=== PATIENT | female | born 1970 | race African-American/Black ===

== ENCOUNTER 2016-10-21 09:22 | Emergency (ER) | payer SELFPAY ==
[~2016-10-21] VITALS: Ht 180.3 cm; Wt 104.3 kg
[~2016-10-21 09:22] MED LIST: ACYC400T PO; CITA20TA9 PO; CLIN-44 PO; DOCU-27 PO; FERR-26 PO; HYDR-971 PO; LISI10TA2 PO; LISI1TAB3 PO; PENI500T PO; POLY17PO29 PO; QUET300T5 PO; QUET400T4 PO; UNABLE MC
[2016-10-21 09:45] VITALS: BP 139/93
[2016-10-21] MEDS ORDERED: AMOX1TAB61 PO (10:28)
--- NOTE | 2016-10-21 10:28 | PHYS DOC ---
Past Medical History Past Medical History: Alcoholism, Anxiety, Depression, High Cholesterol, Hypertension, Schizophrenia, Other Additional Past Medical Histor: schizophrenia w/ hallucinations, visual and auditory, PARANOIA Past Surgical History: Tubal ligation, Other Additional Past Surgical Histo: I&D Additional Information: 2-3 cigarettes daily Alcohol Use: Occasionally Drug Use: Cocaine, Marijuana Adult General Chief Complaint Chief Complaint: COUGH HPI HPI Patient is a 46 year old female comes to the emergency department stating that she's had a cough congestion sore throat and chest discomfort when she coughs for the last week. She states she's been taking [id number]-[id number] medications from [facility]. She denies any relief with the medications. She states she' s been having a fever at home although has not taken her temperature. States that she has yellow to greenish nasal discharge with a productive cough. Does state she has history of smoking. She states that she has not spoke to the last 3-4 days. Review of Systems Review of Systems Constitutional: Denies fever or chills [] Eyes: Denies change in visual acuity, redness, or eye pain [] HENT: nasal congestion and sore throat [] Respiratory: cough denies shortness of breath [] Cardiovascular: No additional information not addressed in HPI [] GI: Denies abdominal pain, nausea, vomiting, bloody stools or diarrhea [] : Denies dysuria or hematuria [] Musculoskeletal: Denies back pain or joint pain [] Integument: Denies rash or skin lesions [] Neurologic: Denies headache, focal weakness or sensory changes [] Endocrine: Denies polyuria or polydipsia [] Allergies Allergies Allergies Coded Allergies Type Severity Reaction Last Updated Verified No Known Drug Allergies 05/21/13 No Physical Exam Physical Exam Constitutional: Well developed, well nourished, no acute distress, non-toxic appearance. [] HENT: Normocephalic, atraumatic, bilateral external ears normal, oropharynx moist, no oral exudates, nose normal. Bilateral tympanic membranes appear to be normal. Throat with no erythematous no redness no drainage or discharge noted no exudate noted. Patient with no anterior cervical adenopathy noted. Patient's with frontal and maxillary sinus tenderness. Eyes: PERRLA, EOMI, conjunctiva normal, no discharge. [] Neck: Normal range of motion, no tenderness, supple, no stridor. [] Cardiovascular:Heart rate regular rhythm, no murmur [] Lungs & Thorax: Bilateral breath sounds clear to auscultation [] Skin: Warm, dry, no erythema, no rash. [] Back: No tenderness Extremities: No tenderness, no cyanosis, no clubbing, ROM intact, no edema. [] Neurologic: Alert and oriented X 3, normal motor function, normal sensory function, no focal deficits noted. [] Psychologic: Affect normal, judgement normal, mood normal. [] Current Patient Data Vital Signs Vital Signs Date Time Temp Pulse Resp B/P (MAP) Pulse Ox O2 Delivery O2 Flow Rate FiO2 10/21/16 09:45 97.8 81 18 139/93 (108) 98 Room Air 97.8 EKG EKG [] Radiology/Procedures Radiology/Procedures [] Course & Med Decision Making Course & Med Decision Making Pertinent Labs and Imaging studies reviewed. (See chart for details) Patient will be discharged home with Augmentin. She was instructed to continue to stop smoking. Recommended Tylenol or ibuprofen for fever chills generalized body aches and discomfort. Mucinex wryr-qny-[id number] for nasal congestion and cough. She was recommended take this as directed by logging crew supervisor. Also recommended plenty of fluids. Patient will be discharged home in stable condition signs and symptoms to return back to emergency department been provided. [] Dragon Disclaimer Dragon Disclaimer This electronic medical record was generated, in whole or in part, using a voice recognition dictation system. Departure Departure Impression: Primary Impression: Upper respiratory infection Disposition: HOME, SELF-CARE Condition: STABLE Referrals: NO PCP (PCP) Patient Instructions: Upper Respiratory Infection, Adult, Mrep-[id number] Additional Instructions: Home to rest Medication as prescribed. Mucinex amhq-xhc-ukvudud instructed by logging crew supervisor will help with cough and congestion Drink plenty of fluids. Follow-up to primary care physician next 3-5 days. Return back to emergency prior signs symptoms of become worse. Scripts Amoxicillin/Potassium Clav (AUGMENTIN 875-125 TABLET) 1 Each Tablet 1 TAB PO BID, #20 TAB Prov: MECHE BARRERA APRN 10/21/16 MECHE BARRERA APRN October 21, 2016 10:28
== END 2016-10-21 10:46 | disposition home or self-care (01) ==
LOC: ER 10:09
DX: J06.9 Acute upper respiratory infection, unspecified (principal); E78.00 Pure hypercholesterolemia, unspecified; I10 Essential (primary) hypertension; F20.9 Schizophrenia, unspecified; R44.1 Visual hallucinations; R44.0 Auditory hallucinations; F17.210 Nicotine dependence, cigarettes, uncomplicated; F12.10 Cannabis abuse, uncomplicated; F14.10 Cocaine abuse, uncomplicated; F10.10 Alcohol abuse, uncomplicated
CPT/HCPCS: 99283

== ENCOUNTER 2017-06-07 08:57 | Emergency (ER) | payer SELFPAY ==
[2017-06-07] MEDS ORDERED: IBUPROFEN 800 MG TABLET. PO ×2 (09:35)
[2017-06-07] MEDS: IBUPROFEN 600 MG TABLET. PO (09:37)
[2017-06-07 10:16] LABS: INFLUENZA A PATIENT NEGATIVE (NEGATIVE); INFLUENZA B PATIENT NEGATIVE (NEGATIVE); OBC FLU VALID
== END 2017-06-07 10:50 | disposition home or self-care (01) ==
LOC: ER 08:57
DX: J06.9 Acute upper respiratory infection, unspecified (principal); E78.00 Pure hypercholesterolemia, unspecified; I10 Essential (primary) hypertension; F20.9 Schizophrenia, unspecified; F10.20 Alcohol dependence, uncomplicated; F32.9 Major depressive disorder, single episode, unspecified; F41.9 Anxiety disorder, unspecified
CPT/HCPCS: 87804; 87804-59; 99284

== ENCOUNTER 2018-11-27 04:01 | Emergency (ER) | payer MEDICAID ==
[~2018-11-27] VITALS: Ht 180.3 cm; Wt 86.2 kg
[~2018-11-27 04:01] MED LIST changes: +AMOX1TAB61 PO; -CLIN-44 PO; +CLIN150C14 PO; +DOCU-109 PO; -DOCU-27 PO; -FERR-26 PO; +FERR325T14 PO; +HYDR-3164 PO; -HYDR-971 PO
[2018-11-27 04:04] VITALS: BP 194/99
[2018-11-27] MEDS ORDERED: cefTRIAXone IV Push 1 GM VIAL. IVP ONE (04:45)
[2018-11-27] MEDS ORDERED: fentaNYL PF VIAL 100 MCG/2 ML VIAL IV ONE (04:45)
[2018-11-27] MEDS ORDERED: IV NORMAL SALINE 500ML BAG 500 ML IV ONE (04:45)
[2018-11-27 05:08] LABS: BASO % 1 % (0-3); EOS # 0.1 x10^3/uL (0.0-0.7); EOS % 1 % (0-3); HEMATOCRIT 40.3 % (36.0-47.0); HEMOGLOBIN 13.5 g/dL (12.0-15.5); LYMPH # 2.1 x10^3/uL (1.0-4.8); LYMPH % 30 % (24-48); MEAN CORPUSCULAR HEMOGLOBIN 29 pg (25-35); MEAN CORPUSCULAR HGB CONC 33 g/dL (31-37); MEAN CORPUSCULAR VOLUME 88 fL (79-100); MONO # 0.5 x10^3/uL (0.0-1.1); MONO % 7 % (0-9); NEUT # 4.4 x10^3uL (1.8-7.7); NEUT % 61 % (31-73); PLATELET COUNT 238 x10^3/uL (140-400); RED BLOOD COUNT 4.59 x10^6/uL (3.50-5.40); RED CELL DISTRIBUTION WIDTH 14.5 % (11.5-14.5); WHITE BLOOD COUNT 7.1 x10^3/uL (4.0-11.0)
[2018-11-27 05:19] LABS: CALCIUM 9.1 mg/dL (8.5-10.1); CREATININE 0.7 mg/dL (0.6-1.0); GFR 107.2; POTASSIUM 3.7 mmol/L (3.5-5.1)
[2018-11-27 05:25] LABS: ALBUMIN 3.6 g/dL (3.4-5.0); ALBUMIN/GLOBULIN RATIO 0.9 (1.0-1.7); TOTAL BILIRUBIN 0.1 mg/dL (0.2-1.0); TOTAL PROTEIN 7.4 g/dL (6.4-8.2)
--- NOTE | 2018-11-27 05:29 | PHYS DOC ---
Past Medical History Past Medical History: Alcoholism, Anxiety, Depression, High Cholesterol, Hypertension, Schizophrenia, Other Additional Past Medical Histor: schizophrenia w/ hallucinations, visual and auditory, PARANOIA (REAL BERRY MD) Past Surgical History: Tubal ligation, Other Additional Past Surgical Histo: I&D (REAL BERRY MD) Alcohol Use: Occasionally Drug Use: Cocaine, Marijuana (REAL BERRY MD) Adult General Chief Complaint Chief Complaint: RECTAL BLEED HPI HPI Patient is a 48 year old female presents with chief complaint of draining from the buttock area. She has a history of a perirectal abscess a couple years ago no fever, mild pain noticed some drainage when trying to have bowel movement earlier. (REAL BERRY MD) Review of Systems Review of Systems Constitutional: Denies fever or chills [] Eyes: Denies change in visual acuity, redness, or eye pain [] HENT: Denies nasal congestion or sore throat [] Respiratory: Denies cough or shortness of breath [] Cardiovascular: No additional information not addressed in HPI [] GI: Denies abdominal pain, nausea, vomiting, bloody stools or diarrhea [] : Denies dysuria or hematuria [] Musculoskeletal: Denies back pain or joint pain [] Integument: Denies rash or skin lesions [] Neurologic: Denies headache, focal weakness or sensory changes [] Endocrine: Denies polyuria or polydipsia [] All other systems were reviewed and found to be within normal limits, except as documented in this note. (REAL BERRY MD) Current Medications Current Medications Current Medications Medications (Trade) Dose Ordered Sig/Leann Start Time Stop Time Status Last Admin Dose Admin Ceftriaxone Sodium (Rocephin) 1 gm 1X ONCE 11/27/18 04:45 11/27/18 04:46 DC 11/27/18 05:32 1 GM Fentanyl Citrate (Fentanyl 2ml Vial) 50 mcg 1X ONCE 11/27/18 04:45 11/27/18 04:46 DC 11/27/18 05:27 50 MCG Info (CONTRAST GIVEN -- Rx MONITORING) 1 each PRN DAILY PRN 11/27/18 05:30 11/29/18 05:29 Iohexol (Omnipaque 300 Mg/ml) 75 ml 1X ONCE 11/27/18 05:30 11/27/18 05:31 DC 11/27/18 05:43 75 ML Metronidazole 100 ml @ 100 mls/hr 1X ONCE 11/27/18 04:45 11/27/18 05:44 DC 11/27/18 05:54 100 MLS/HR Sodium Chloride 500 ml @ 500 mls/hr 1X ONCE 11/27/18 04:45 11/27/18 05:44 DC 11/27/18 05:29 500 MLS/HR (TANJA ZHENG MD) Allergies Allergies Allergies Coded Allergies Type Severity Reaction Last Updated Verified No Known Drug Allergies 05/21/13 No (TANJA ZHENG MD) Physical Exam Physical Exam Constitutional: Well developed, well nourished, no acute distress, non-toxic appearance. [] HENT: Normocephalic, atraumatic, bilateral external ears normal, oropharynx moist, no oral exudates, nose normal. [] Eyes: PERRLA, EOMI, conjunctiva normal, no discharge. [] Neck: Normal range of motion, no tenderness, supple, no stridor. [] normal respiratory effort no increased work of breathing Abdomen: Bowel sounds normal, soft, no tenderness, no masses, no pulsatile masses. [] rectal there is small approximately one cm area fo erythema and induration with small apparent draining sinus tract at 12 oclock just superior to the anus. Skin: Warm, dry, no erythema, no rash. [] Back: No tenderness, no CVA tenderness. [] Extremities: No tenderness, no cyanosis, no clubbing, ROM intact, no edema. [] Neurologic: Alert and oriented X 3, normal motor function, normal sensory function, no focal deficits noted. [] Psychologic: Affect normal, judgement normal, mood normal. [] (REAL BERRY MD) Current Patient Data Vital Signs Vital Signs Date Time Temp Pulse Resp B/P (MAP) Pulse Ox O2 Delivery O2 Flow Rate FiO2 11/27/18 05:27 18 98 Room Air 11/27/18 04:04 97.6 79 194/99 (130) 97.6 (TANJA ZHENG MD) Lab Values Laboratory Tests Test 11/27/18 04:55 White Blood Count 7.1 x10^3/uL (4.0-11.0) Red Blood Count 4.59 x10^6/uL (3.50-5.40) Hemoglobin 13.5 g/dL (12.0-15.5) Hematocrit 40.3 % (36.0-47.0) Mean Corpuscular Volume 88 fL (79-100) Mean Corpuscular Hemoglobin 29 pg (25-35) Mean Corpuscular Hemoglobin Concent 33 g/dL (31-37) Red Cell Distribution Width 14.5 % (11.5-14.5) Platelet Count 238 x10^3/uL (140-400) Neutrophils (%) (Auto) 61 % (31-73) Lymphocytes (%) (Auto) 30 % (24-48) Monocytes (%) (Auto) 7 % (0-9) Eosinophils (%) (Auto) 1 % (0-3) Basophils (%) (Auto) 1 % (0-3) Neutrophils # (Auto) 4.4 x10^3uL (1.8-7.7) Lymphocytes # (Auto) 2.1 x10^3/uL (1.0-4.8) Monocytes # (Auto) 0.5 x10^3/uL (0.0-1.1) Eosinophils # (Auto) 0.1 x10^3/uL (0.0-0.7) Basophils # (Auto) 0.0 x10^3/uL (0.0-0.2) Sodium Level 139 mmol/L (136-145) Potassium Level 3.7 mmol/L (3.5-5.1) Chloride Level 104 mmol/L (98-107) Carbon Dioxide Level 23 mmol/L (21-32) Anion Gap 12 (6-14) Blood Urea Nitrogen 15 mg/dL (7-20) Creatinine 0.7 mg/dL (0.6-1.0) Estimated GFR (Cockcroft-Gault) 107.2 BUN/Creatinine Ratio 21 (6-20) H Glucose Level 125 mg/dL (70-99) H Calcium Level 9.1 mg/dL (8.5-10.1) Total Bilirubin 0.1 mg/dL (0.2-1.0) L Aspartate Amino Transferase (AST) 10 U/L (15-37) L Alanine Aminotransferase (ALT) 22 U/L (14-59) Alkaline Phosphatase 81 U/L (46-116) Total Protein 7.4 g/dL (6.4-8.2) Albumin 3.6 g/dL (3.4-5.0) Albumin/Globulin Ratio 0.9 (1.0-1.7) L Laboratory Tests 11/27/18 04:55 Laboratory Tests 11/27/18 04:55 (TANJA ZHENG MD) EKG EKG [] (REAL BERRY MD) Radiology/Procedures Radiology/Procedures [] (REAL BERRY MD) Radiology/Procedures [facility] [address] [place] [address] IMAGING REPORT Signed PATIENT: UMAIR CRUZ ACCOUNT: [id number] : 1970 LOCATION: ER AGE: 48 SEX: F EXAM STATUS: REG ER ORD. PHYSICIAN: REAL BERRY MD REASON: perirectal swelling. r/o abscess. wait for creatinien. PROCEDURE: CT ABD PELV W/ IV CONTRST ONLY PQRS Compliance Statement: One or more of the following individualized dose reduction techniques were utilized for this examination: 1. Automated exposure control 2. Adjustment of the mA and/or kV according to patient size 3. Use of iterative reconstruction technique CT abdomen/pelvis with contrast 11/27/2018 4:33 AM INDICATION: Perirectal swelling COMPARISON: None available TECHNIQUE: Multiple axial CT images of the abdomen and pelvis were obtained after the intravenous administration of nonionic contrast. Coronal and sagittal reformats are provided. FINDINGS: Lung bases are clear. Heart size is within normal limits. Liver, spleen, bilateral adrenal glands, pancreas, gallbladder, aorta and kidneys are normal in appearance. No pathologically enlarged lymph nodes in abdomen and pelvis. Left inguinal lymph node measures 13 mm by short axis. Right inguinal lymph node measures 11 mm by short axis. Small and large bowel are normal in caliber. There is no evidence for bowel obstruction. There are no pericolonic inflammatory changes. A normal, nondilated appendix is visualized without adjacent inflammatory changes. Intimal skin thickening in the perianal region without underlying abscess or subcutaneous gas. There is mild inflammation involving the mesorectal fat within the lower rectum. No pathologically enlarged lymph nodes. Rounded internal iliac lymph node measures 6 mm (series 2, image 66). Urinary bladder is within normal limits given degree of distention. No suspicious osseous amount. IMPRESSION: Mild perianal skin thickening without abscess. Minimal infiltration of the mesorectal fat without suspicious wall thickening. Electronically signed by: Telma Thomas MD (11/27/2018 6:23 AM) [facility] DICTATED and SIGNED BY: TELMA THOMAS MD DATE: 11/27/18622 (TANJA ZHENG MD) Course & Med Decision Making Course & Med Decision Making Pertinent Labs and Imaging studies reviewed. (See chart for details) []hx htn schizophrenia, prior perirectal abscess p/w some mild perirectal swelling and erythema, concerning for same. labs, ct scan s/o erika (REAL BERRY MD) Course & Med Decision Making I've spoken with the patient and/or caregivers. I've explained the patient's condition, diagnosis and treatment plan based on information available to me at this time. I've answered the patient's and/or caregivers questions and addressed any concerns. The patient and/or caregivers have a good understanding the patient's diagnosis, condition and treatment plan as can be expected at this point. Vital signs have been stabilized. The patient's condition is stable for discharge from the emergency department. The patient will pursue further outpatient evaluation with her primary care pro vider or other designated consulting physician as outlined in the discharge instructions. Patient and/or caregivers are agreeable to this plan of care and follow-up instructions have been explained in detail. The patient and/or caregivers have received these instructions in written format and expressed understanding of these discharge instructions. The patient and her caregivers are aware that if any significant change in condition or worsening of symptoms should prompt him to immediately return to this of the closest emergency department. If an emergent department is not readily available I would encourage him to call 911. (TANJA ZHENG MD) Dragon Disclaimer Dragon Disclaimer This electronic medical record was generated, in whole or in part, using a voice recognition dictation system. (REAL BERRY MD) Departure Departure Impression: Primary Impression: Perianal fistula Disposition: HOME, SELF-CARE (at 0655) Condition: IMPROVED Referrals: NO PCP (PCP) GIANNA SHI MD Patient Instructions: Anal Fissure, Adult, Pvos-je-Jmal, Sitz Bath, [id number] Additional Instructions: Drink plenty of liquids Follow-up with your primary care physician in 3-5 days Return to ER if not getting better Follow-up with on-call surgeon in 2 or 3 days Scripts Hydrocodone/Apap 5-325 (NORCO 5-325 TABLET) 1 Each Tablet 1 TAB PO PRN Q6HRS PRN for PAIN, #10 TAB 0 Refills Prov: TANJA ZHENG MD 11/27/18 Cephalexin (KEFLEX) 500 Mg Capsule 2 CAP PO Q12HR, #28 CAP Prov: TANJA ZHENG MD 11/27/18 Ibuprofen (IBUPROFEN) 800 Mg Tablet 800 MG PO PRN Q8HRS PRN for INFLAMMATION, #20 TAB Prov: TANJA ZHENG MD 11/27/18 Metronidazole (FLAGYL) 500 Mg Tablet 1 TAB PO TID, #21 TAB Prov: TANJA ZHENG MD 11/27/18 REAL BERRY MD Nov 27, 2018 05:29 TANJA ZHENG MD Nov 27, 2018 06:59
[2018-11-27] MEDS ORDERED: IOHEXOL 300 MG/ML 100ML VIAL. IV ONE (05:30)
[2018-11-27] MEDS ORDERED: CONTRAST GIVEN. MC PRN (05:30)
--- NOTE | 2018-11-27 06:26 | RAD ---
PQRS Compliance Statement: One or more of the following individualized dose reduction techniques were utilized for this examination: 1. Automated exposure control 2. Adjustment of the mA and/or kV according to patient size 3. Use of iterative reconstruction technique CT abdomen/pelvis with contrast 11/27/2018 4:33 AM INDICATION: Perirectal swelling COMPARISON: None available TECHNIQUE: Multiple axial CT images of the abdomen and pelvis were obtained after the intravenous administration of nonionic contrast. Coronal and sagittal reformats are provided. FINDINGS: Lung bases are clear. Heart size is within normal limits. Liver, spleen, bilateral adrenal glands, pancreas, gallbladder, aorta and kidneys are normal in appearance. No pathologically enlarged lymph nodes in abdomen and pelvis. Left inguinal lymph node measures 13 mm by short axis. Right inguinal lymph node measures 11 mm by short axis. Small and large bowel are normal in caliber. There is no evidence for bowel obstruction. There are no pericolonic inflammatory changes. A normal, nondilated appendix is visualized without adjacent inflammatory changes. Intimal skin thickening in the perianal region without underlying abscess or subcutaneous gas. There is mild inflammation involving the mesorectal fat within the lower rectum. No pathologically enlarged lymph nodes. Rounded internal iliac lymph node measures 6 mm (series 2, image 66). Urinary bladder is within normal limits given degree of distention. No suspicious osseous amount. IMPRESSION: Mild perianal skin thickening without abscess. Minimal infiltration of the mesorectal fat without suspicious wall thickening. Electronically signed by: Sailaja Guo MD (11/27/2018 6:23 AM) [facility]
[2018-11-27] MEDS ORDERED: IBUP-1060 PO (06:59)
[2018-11-27] MEDS ORDERED: CEPH-264 PO (06:59)
[2018-11-27] MEDS ORDERED: HYDR-3164 PO (06:59)
[2018-11-27] MEDS ORDERED: METR500T PO (06:59)
== END 2018-11-27 07:04 | disposition home or self-care (01) ==
LOC: ER 04:01
DX: K60.3 Anal fistula (principal); E78.00 Pure hypercholesterolemia, unspecified; I10 Essential (primary) hypertension; F41.9 Anxiety disorder, unspecified; F20.9 Schizophrenia, unspecified; F22 Delusional disorders; F10.20 Alcohol dependence, uncomplicated; Y90.9 Presence of alcohol in blood, level not specified
CPT/HCPCS: 36415; 74177; 80053; 85025; 96365; 96375; 99285; J0696; J3010; J3490; J7040; Q9967

== ENCOUNTER 2019-04-15 08:48 | Emergency (ER) | payer MEDICAID ==
[~2019-04-15] VITALS: Ht 180.3 cm; Wt 108.9 kg
[~2019-04-15 08:48] MED LIST changes: +CEPH-264 PO; +IBUP-1060 PO; +LISI1TAB23 PO; -LISI1TAB3 PO; +METR500T PO
[2019-04-15 08:55] VITALS: BP 136/82
--- NOTE | 2019-04-15 08:59 | PHYS DOC ---
Past Medical History Past Medical History: Alcoholism, Anxiety, Depression, High Cholesterol, Hypertension, Schizophrenia, Other Additional Past Medical Histor: schizophrenia w/ hallucinations, visual and auditory, PARANOIA Past Surgical History: Tubal ligation, Other Additional Past Surgical Histo: I&D Alcohol Use: Occasionally Drug Use: Cocaine, Marijuana Adult General Chief Complaint Chief Complaint: COUGH HPI HPI Patient is a 48 year old who presented to ER today for evaluation of nonproductive cough with nasal congestion for about 2 weeks. She Is a smoker, she denies any fever, no chest pain, no trouble breathing. Patient denies any abdominal pain, no nausea vomiting. All other ROS is negative unless otherwise noted in HPI Review of Systems Review of Systems See above Allergies Allergies Allergies Coded Allergies Type Severity Reaction Last Updated Verified No Known Drug Allergies 05/21/13 No Physical Exam Physical Exam See above Constitutional: Well developed, well nourished, no acute distress, non-toxic appearance. [] HENT: Normocephalic, atraumatic, bilateral external ears normal, oropharynx moist, no oral exudates, nose normal. [] Eyes: PERRLA, EOMI, conjunctiva normal, no discharge. [] Neck: Normal range of motion, no tenderness, supple, no stridor. [] Cardiovascular:Heart rate regular rhythm, no murmur [] Lungs & Thorax: Bilateral breath sounds clear to auscultation [] Abdomen: Bowel sounds normal, soft, no tenderness, no masses, no pulsatile masses. [] Skin: Warm, dry, no erythema, no rash. [] Back: No tenderness, no CVA tenderness. [] Extremities: No tenderness, no cyanosis, no clubbing, ROM intact, no edema. [] Neurologic: Alert and oriented X 3, normal motor function, normal sensory function, no focal deficits noted. [] Psychologic: Affect normal, judgement normal, mood normal. [] Current Patient Data Vital Signs Vital Signs Date Time Temp Pulse Resp B/P (MAP) Pulse Ox O2 Delivery O2 Flow Rate FiO2 04/15/19 08:55 97.5 107 20 136/82 (100) 99 Room Air 97.5 EKG EKG [] Radiology/Procedures Radiology/Procedures [][facility] [address] [place] [address] IMAGING REPORT Signed PATIENT: UMAIR CRUZ ACCOUNT: [id number] : 1970 LOCATION: ER AGE: 48 SEX: F EXAM STATUS: REG ER ORD. PHYSICIAN: VIDAL SAHA DO REASON: cough for 2 weeks PROCEDURE: CHEST PA & LATERAL CHEST PA LATERAL History: Cough for the past 2 weeks Comparison: 02/20/2015 two-view chest x-ray exam. Findings: The cardiomediastinal silhouette is normal. Pulmonary vasculature is normal. The lungs are clear. No pleural effusion or pneumothorax is seen. Left apical pleural thickening is present. There is no acute bone abnormality. IMPRESSION: No acute cardiopulmonary process. Electronically signed by: Marlen Ponce MD (04/15/2019 9:11 AM) [facility] DICTATED and SIGNED BY: MARLEN PONCE MD DATE: 04/15/19910 Course & Med Decision Making Course & Med Decision Making Pertinent Labs and Imaging studies reviewed. (See chart for details) [] Dragon Disclaimer Dragon Disclaimer This electronic medical record was generated, in whole or in part, using a voice recognition dictation system. Departure Departure Impression: Primary Impression: Bronchitis Disposition: 01 HOME, SELF-CARE Condition: STABLE Referrals: UNKNOWN PCP NAME (PCP) follow up with your family doctor next week. Patient Instructions: Acute Bronchitis Scripts Cefdinir (CEFDINIR) 300 Mg Capsule 300 MG PO BID for 10 Days, #20 CAP 0 Refills Prov: VIDAL SAHA DO 04/15/19 Prednisone (PREDNISONE) 20 Mg Tablet 1 TAB PO DAILY, #10 TAB Prov: VIDAL SAHA DO 04/15/19 VIDAL SAHA DO Apr 15, 2019 08:59
--- NOTE | 2019-04-15 09:15 | RAD ---
CHEST PA LATERAL History: Cough for the past 2 weeks Comparison: 02/20/2015 two-view chest x-ray exam. Findings: The cardiomediastinal silhouette is normal. Pulmonary vasculature is normal. The lungs are clear. No pleural effusion or pneumothorax is seen. Left apical pleural thickening is present. There is no acute bone abnormality. IMPRESSION: No acute cardiopulmonary process. Electronically signed by: Rambo Adames MD (04/15/2019 9:11 AM) [facility]
[2019-04-15] MEDS ORDERED: CEFD300C PO (09:21)
[2019-04-15] MEDS ORDERED: PRED20TA PO (09:21)
== END 2019-04-15 09:40 | disposition home or self-care (01) ==
LOC: ER 08:48
DX: J40 Bronchitis, not specified as acute or chronic (principal); F10.20 Alcohol dependence, uncomplicated; E78.00 Pure hypercholesterolemia, unspecified; I10 Essential (primary) hypertension; F20.9 Schizophrenia, unspecified; F41.9 Anxiety disorder, unspecified; F32.9 Major depressive disorder, single episode, unspecified; Y90.9 Presence of alcohol in blood, level not specified
CPT/HCPCS: 71046; 99284

== ENCOUNTER 2019-05-29 09:02 | Emergency (ER) | payer MEDICAID ==
[~2019-05-29] VITALS: Ht 180.3 cm; Wt 113.4 kg
[~2019-05-29 09:02] MED LIST changes: +CEFD300C PO; +PRED20TA PO
[2019-05-29] MEDS ORDERED: ONDANSETRON PF 4 MG/2 ML VIAL. IV ONE (10:00)
[2019-05-29] MEDS ORDERED: MORPHINE SULFATE 10 MG/ML VIAL. IV ONE (10:00)
[2019-05-29] MEDS ORDERED: FAMOTIDINE 20 MG/2 ML VIAL IVP ONE (10:00)
--- NOTE | 2019-05-29 10:00 | PHYS DOC ---
Past Medical History Past Medical History: Depression, Hypertension Additional Past Medical Histor: schizophrenia w/ hallucinations, visual and auditory, PARANOIA Past Surgical History: No Surgical History Additional Past Surgical Histo: I&D Alcohol Use: None Drug Use: Marijuana Adult General Chief Complaint Chief Complaint: RECTAL BLEED HPI HPI Patient is a 49 year old female with history of hypertension, depression, who presents to the ED today complaining of rectal drainage green in color, symptoms began 4-5 days ago. Patient states she's had similar symptoms in 2016 when she was diagnosed with a perirectal abscess. Denies any abdominal pain. Denies any nausea, vomiting. Review of Systems Review of Systems Constitutional: Denies fever or chills [] Eyes: Denies change in visual acuity, redness, or eye pain [] HENT: Denies nasal congestion or sore throat [] Respiratory: Denies cough or shortness of breath [] Cardiovascular: No additional information not addressed in HPI [] GI: Reports rectal bleeding, rectal drainage. Denies abdominal pain, nausea, vomiting, bloody stools or diarrhea [] : Denies dysuria or hematuria [] Musculoskeletal: Denies back pain or joint pain [] Integument: Denies rash or skin lesions [] Neurologic: Denies headache, focal weakness or sensory changes [] All other systems were reviewed and found to be within normal limits, except as documented in this note. Current Medications Current Medications Current Medications Medications (Trade) Dose Ordered Sig/Leann Start Time Stop Time Status Last Admin Dose Admin Famotidine (Pepcid Vial) 20 mg 1X ONCE 05/29/19 10:00 05/29/19 10:08 DC 05/29/19 10:36 20 MG Info (CONTRAST GIVEN -- Rx MONITORING) 1 each PRN DAILY PRN 05/29/19 11:15 05/31/19 11:14 Iohexol (Omnipaque 300 Mg/ml) 75 ml 1X ONCE 05/29/19 11:15 05/29/19 11:16 DC Morphine Sulfate (Morphine Sulfate) 5 mg 1X ONCE 05/29/19 10:00 05/29/19 10:08 DC 05/29/19 10:36 5 MG Ondansetron HCl (Zofran) 4 mg 1X ONCE 05/29/19 10:00 05/29/19 10:08 DC 05/29/19 10:36 4 MG Allergies Allergies Allergies Coded Allergies Type Severity Reaction Last Updated Verified No Known Drug Allergies 05/21/13 No Physical Exam Physical Exam Constitutional: Well developed, well nourished, no acute distress, non-toxic appearance. [] HENT: Normocephalic, atraumatic, bilateral external ears normal, oropharynx moist, no oral exudates, nose normal. [] Eyes: PERRLA, EOMI, conjunctiva normal, no discharge. [] Neck: Normal range of motion, no tenderness, supple, no stridor. [] Cardiovascular:Heart rate regular rhythm, no murmur [] Lungs & Thorax: Bilateral breath sounds clear to auscultation [] Abdomen: Bowel sounds normal, soft, no tenderness, no masses, no pulsatile masses. [] Rectal exam-external rectal has no obvious lesions. Internal rectal exam was done, no obvious lesions noted. No green discharge noted. Skin: Warm, dry, no erythema, no rash. [] Back: No tenderness, no CVA tenderness. [] Extremities: No tenderness, no cyanosis, no clubbing, ROM intact, no edema. [] Neurologic: Alert and oriented X 3, normal motor function, normal sensory function, no focal deficits noted. [] Psychologic: Affect normal, judgement normal, mood normal. [] Current Patient Data Vital Signs Vital Signs Date Time Temp Pulse Resp B/P (MAP) Pulse Ox O2 Delivery O2 Flow Rate FiO2 05/29/19 11:16 66 103/62 (76) 92 Room Air 05/29/19 09:47 14 Lab Values Laboratory Tests Test 05/29/19 10:00 White Blood Count 5.4 x10^3/uL (4.0-11.0) Red Blood Count 4.46 x10^6/uL (3.50-5.40) Hemoglobin 12.9 g/dL (12.0-15.5) Hematocrit 38.9 % (36.0-47.0) Mean Corpuscular Volume 87 fL (79-100) Mean Corpuscular Hemoglobin 29 pg (25-35) Mean Corpuscular Hemoglobin Concent 33 g/dL (31-37) Red Cell Distribution Width 14.5 % (11.5-14.5) Platelet Count 199 x10^3/uL (140-400) Neutrophils (%) (Auto) 63 % (31-73) Lymphocytes (%) (Auto) 28 % (24-48) Monocytes (%) (Auto) 7 % (0-9) Eosinophils (%) (Auto) 1 % (0-3) Basophils (%) (Auto) 1 % (0-3) Neutrophils # (Auto) 3.4 x10^3/uL (1.8-7.7) Lymphocytes # (Auto) 1.5 x10^3/uL (1.0-4.8) Monocytes # (Auto) 0.4 x10^3/uL (0.0-1.1) Eosinophils # (Auto) 0.0 x10^3/uL (0.0-0.7) Basophils # (Auto) 0.1 x10^3/uL (0.0-0.2) Urine Collection Type Unknown Urine Color Yellow Urine Clarity Clear Urine pH 5.5 Urine Specific [place] 1.015 Urine Protein Negative mg/dL (NEG-TRACE) Urine Glucose (UA) Negative mg/dL (NEG) Urine Ketones (Stick) Negative mg/dL (NEG) Urine Blood Trace (NEG) Urine Nitrite Negative (NEG) Urine Bilirubin Negative (NEG) Urine Urobilinogen Dipstick 0.2 mg/dL (0.2 mg/dL) Urine Leukocyte Esterase Moderate (NEG) Urine RBC Occ /HPF (0-2) Urine WBC 5-10 /HPF (0-4) Urine Squamous Epithelial Cells Few /LPF Urine Bacteria Few /HPF (0-FEW) Sodium Level 142 mmol/L (136-145) Potassium Level 3.9 mmol/L (3.5-5.1) Chloride Level 106 mmol/L (98-107) Carbon Dioxide Level 26 mmol/L (21-32) Anion Gap 10 (6-14) Blood Urea Nitrogen 16 mg/dL (7-20) Creatinine 0.9 mg/dL (0.6-1.0) Estimated GFR (Cockcroft-Gault) 79.9 BUN/Creatinine Ratio 18 (6-20) Glucose Level 107 mg/dL (70-99) H Calcium Level 9.0 mg/dL (8.5-10.1) Total Bilirubin 0.3 mg/dL (0.2-1.0) Aspartate Amino Transferase (AST) 15 U/L (15-37) Alanine Aminotransferase (ALT) 22 U/L (14-59) Alkaline Phosphatase 63 U/L (46-116) Total Protein 7.5 g/dL (6.4-8.2) Albumin 3.6 g/dL (3.4-5.0) Albumin/Globulin Ratio 0.9 (1.0-1.7) L Lipase 124 U/L (73-393) Laboratory Tests 05/29/19 10:00 Laboratory Tests 05/29/19 10:00 EKG EKG [] Radiology/Procedures Radiology/Procedures []PROCEDURE: CT PELVIS W/CONTRAST Examination: CT pelvis with IV contrast HISTORY: History of rectal discharge COMPARISON: 11/27/2018 TECHNIQUE: Axial CT images of the pelvis were performed with IV contrast. Coronal and sagittal reformats are performed. Exposure: One or more of the following individualized dose reduction techniques were utilized for this examination: 1. Automated exposure control 2. Adjustment of the mA and/or kV according to patient size 3. Use of iterative reconstruction technique FINDINGS: Feces and gas noted in the colon. Partially visualized small bowel grossly appears unremarkable. Calcified density identified in the right adnexa similar to prior exam could be calcified adnexal cyst or fibroid. Urinary bladder is mildly distended. There is minimal questionable perirectal fat stranding without obvious fluid collection. IMPRESSION: Questionable minimal perirectal fat stranding, nonspecific could be due to nondistention or proctitis without focal fluid collection to suggest an abscess. Electronically signed by: Joseph Santos MD (05/29/2019 1:13 PM) [id number] DICTATED and SIGNED BY: JOSEPH SANTOS MD DATE: 05/29/19 1313 Course & Med Decision Making Course & Med Decision Making Pertinent Labs and Imaging studies reviewed. (See chart for details) This is a 49-year-old female patient presenting to the ED today with complaints of rectal discharge. Patient states symptoms began 4-5 days ago has history of perirectal abscess. Physical exam was negative for rectal abscess. CBC with a normal WBC, CMP would not acute findings. CT of the pelvis-Questionable minimal perirectal fat stranding, nonspecific could be due to nondistention or proctitis without focal fluid collection to suggest an abscess. Considering the above CT results with no obvious perirectal abscess and a normal white count. Will discharge patient on antibiotics and have her follow-up as an outpatient with the general surgeon. Priscilla Disclaimer Priscilla Disclaimer This electronic medical record was generated, in whole or in part, using a voice recognition dictation system. Departure Departure Impression: Primary Impression: Anal infection Disposition: 01 HOME, SELF-CARE Condition: STABLE Referrals: NO PCP (PCP) SERGEY NGUYEN MD Call his office today and set up a follow-up appointment Patient Instructions: Anal Fissure, Adult, [id number] Additional Instructions: You were evaluated in the emergency room, you do not have an obvious perirectal abscess. We put you on antibiotics. Take them as prescribed until completed. Follow up with the general surgeon provided as next week. Scripts Docusate Sodium (DOCUSATE SODIUM) 100 Mg Capsule 1 CAP PO BID for constipation for 7 Days, #14 CAP 0 Refills Prov: AQUILES CHAVIRA APRN 05/29/19 Hydrocodone/Apap 5-325 (NORCO 5-325 TABLET) 1 Each Tablet 1-2 TAB PO Q4-6HRS PRN for PAIN, #25 TAB Prov: AQUILES CHAVIRA APRN 05/29/19 Clindamycin Hcl (CLINDAMYCIN HCL) 150 Mg Capsule 3 CAP PO TID, #90 CAP Prov: AQUILES CHAVIRA APRN 05/29/19 AQUILES CHAVIRA APRN May 29, 2019 10:00
[2019-05-29 10:32] LABS: CREATININE 0.9 mg/dL (0.6-1.0); GFR 79.9; POTASSIUM 3.9 mmol/L (3.5-5.1)
[2019-05-29 10:36] LABS: BASO # 0.1 x10^3/uL (0.0-0.2); BASO % 1 % (0-3); EOS % 1 % (0-3); HEMATOCRIT 38.9 % (36.0-47.0); HEMOGLOBIN 12.9 g/dL (12.0-15.5); LYMPH # 1.5 x10^3/uL (1.0-4.8); LYMPH % 28 % (24-48); MEAN CORPUSCULAR HEMOGLOBIN 29 pg (25-35); MEAN CORPUSCULAR HGB CONC 33 g/dL (31-37); MEAN CORPUSCULAR VOLUME 87 fL (79-100); MONO # 0.4 x10^3/uL (0.0-1.1); MONO % 7 % (0-9); NEUT # 3.4 x10^3/uL (1.8-7.7); NEUT % 63 % (31-73); PLATELET COUNT 199 x10^3/uL (140-400); RED BLOOD COUNT 4.46 x10^6/uL (3.50-5.40); RED CELL DISTRIBUTION WIDTH 14.5 % (11.5-14.5); WHITE BLOOD COUNT 5.4 x10^3/uL (4.0-11.0)
[2019-05-29 10:38] LABS: ALBUMIN 3.6 g/dL (3.4-5.0); ALBUMIN/GLOBULIN RATIO 0.9 (1.0-1.7); TOTAL BILIRUBIN 0.3 mg/dL (0.2-1.0); TOTAL PROTEIN 7.5 g/dL (6.4-8.2)
[2019-05-29 11:02] LABS: BILIRUBIN,URINE NEGATIVE (NEG); CLARITY,URINE CLEAR; COLOR,URINE YELLOW; NITRITE,URINE NEGATIVE (NEG); PH,URINE 5.5; PROTEIN,URINE NEGATIVE (NEG-TRACE); UROBILINOGEN,URINE 0.2 mg/dL (0.2 mg/dL)
[2019-05-29 11:12] LABS: BACTERIA,URINE FEW /HPF (0-FEW); RBC,URINE OCC /HPF (0-2); SQUAMOUS EPITHELIAL CELL,UR FEW /LPF
[2019-05-29] MEDS ORDERED: IOHEXOL 300 MG/ML 100ML VIAL. IV ONE (11:15)
[2019-05-29] MEDS ORDERED: CONTRAST GIVEN. MC PRN (11:15)
[2019-05-29 11:16] VITALS: BP 103/62
--- NOTE | 2019-05-29 13:16 | RAD ---
Examination: CT pelvis with IV contrast HISTORY: History of rectal discharge COMPARISON: 11/27/2018 TECHNIQUE: Axial CT images of the pelvis were performed with IV contrast. Coronal and sagittal reformats are performed. Exposure: One or more of the following individualized dose reduction techniques were utilized for this examination: 1. Automated exposure control 2. Adjustment of the mA and/or kV according to patient size 3. Use of iterative reconstruction technique FINDINGS: Feces and gas noted in the colon. Partially visualized small bowel grossly appears unremarkable. Calcified density identified in the right adnexa similar to prior exam could be calcified adnexal cyst or fibroid. Urinary bladder is mildly distended. There is minimal questionable perirectal fat stranding without obvious fluid collection. IMPRESSION: Questionable minimal perirectal fat stranding, nonspecific could be due to nondistention or proctitis without focal fluid collection to suggest an abscess. Electronically signed by: Joseph Santos MD (05/29/2019 1:13 PM) [id number]
[2019-05-29] MEDS ORDERED: CLIN150C14 PO (13:45)
[2019-05-29] MEDS ORDERED: HYDR-3164 PO (13:45)
[2019-05-29] MEDS ORDERED: DOCU100C28 PO (13:45)
== END 2019-05-29 14:03 | disposition home or self-care (01) ==
LOC: ER 09:02
DX: K62.89 Other specified diseases of anus and rectum (principal); I10 Essential (primary) hypertension; F20.9 Schizophrenia, unspecified
CPT/HCPCS: 36415; 72193; 80053; 81001; 83690; 85025; 96374; 96375; 99285; J2270; J2405; J3490

== ENCOUNTER 2019-07-10 03:15 | Emergency (ER) | payer MEDICAID ==
[~2019-07-10] VITALS: Ht 180.3 cm; Wt 109.1 kg
[~2019-07-10 03:15] MED LIST changes: +DOCU100C28 PO
--- NOTE | 2019-07-10 03:40 | PHYS DOC ---
Past Medical History Past Medical History: Depression, Hypertension Additional Past Medical Histor: schizophrenia w/ hallucinations, visual and auditory, PARANOIA Past Surgical History: No Surgical History Additional Past Surgical Histo: I&D Smoking Status: Current Every Day Smoker Alcohol Use: None Drug Use: Marijuana Adult General Chief Complaint Chief Complaint: FLU SYMPTOM HPI HPI 49-year-old female presents to the emergency department with complaints of multiple symptoms. Symptoms have been ongoing 1 week. Patient has history of hypertension. She describes chest pain, cough, congestion, nausea, vomiting, diarrhea, abdominal pain. She states she has been taking antibiotics from previous visits to the hospital however has had no relief. Nothing makes her symptoms worse, nothing makes her symptoms better. Her abdominal pain is generalized, comes and goes. Cough is productive with phlegm production. Review of Systems Review of Systems Constitutional: fever/chills HENT: + nasal congestion, no sore throat [] Respiratory: + cough/SOB Cardiovascular: No additional information not addressed in HPI [] GI: generalized abdominal pain, nausea, vomiting, no bloody stools, + diarrhea [] : Denies dysuria or hematuria [] Musculoskeletal: Denies back pain or joint pain [] Integument: Denies rash or skin lesions [] Neurologic: Denies headache, focal weakness or sensory changes [] All other systems were reviewed and found to be within normal limits, except as documented in this note. Current Medications Current Medications Current Medications Medications (Trade) Dose Ordered Sig/Leann Start Time Stop Time Status Last Admin Dose Admin Info (CONTRAST GIVEN -- Rx MONITORING) 1 each PRN DAILY PRN 07/10/19 05:00 07/12/19 04:59 Iohexol (Omnipaque 300 Mg/ml) 75 ml 1X ONCE 07/10/19 05:00 07/10/19 05:01 DC 07/10/19 04:58 75 ML Morphine Sulfate (Morphine Sulfate) 4 mg 1X ONCE 07/10/19 06:00 07/10/19 06:01 Ondansetron HCl (Zofran) 4 mg 1X ONCE 07/10/19 06:00 07/10/19 06:01 Potassium Chloride/Water 100 ml @ 50 mls/hr 1X ONCE 07/10/19 05:00 07/10/19 06:59 07/10/19 05:03 50 MLS/HR Allergies Allergies Allergies Coded Allergies Type Severity Reaction Last Updated Verified No Known Drug Allergies 12/19/13 No Physical Exam Physical Exam Constitutional: Well developed, well nourished, no acute distress, non-toxic appearance. [] HENT: Normocephalic, atraumatic, bilateral external ears normal, oropharynx moist, no oral exudates, nose normal. [] Eyes: PERRLA, EOMI, conjunctiva normal, no discharge. [] Neck: Normal range of motion, no tenderness, supple, no stridor. [] Cardiovascular: tachycardia (101), no murmur appreciated Lungs & Thorax: Bilateral breath sounds clear to auscultation [] Abdomen: Bowel sounds normal, soft, no tenderness, no masses, no pulsatile masses. [] Skin: Warm, dry, no erythema, no rash. [] Back: No tenderness, no CVA tenderness. [] Extremities: No tenderness, no edema. [] Neurologic: Alert and oriented X 3, no focal deficits noted. [] Psychologic: Affect normal, judgement normal, mood normal. [] Current Patient Data Vital Signs Vital Signs Date Time Temp Pulse Resp B/P (MAP) Pulse Ox O2 Delivery O2 Flow Rate FiO2 07/10/19 03:30 98.4 99 18 145/64 (91) 95 Room Air 98.4 Lab Values Laboratory Tests Test 07/10/19 04:10 07/10/19 04:14 White Blood Count 3.8 x10^3/uL (4.0-11.0) L Red Blood Count 4.42 x10^6/uL (3.50-5.40) Hemoglobin 12.7 g/dL (12.0-15.5) Hematocrit 37.9 % (36.0-47.0) Mean Corpuscular Volume 86 fL (79-100) Mean Corpuscular Hemoglobin 29 pg (25-35) Mean Corpuscular Hemoglobin Concent 34 g/dL (31-37) Red Cell Distribution Width 14.5 % (11.5-14.5) Platelet Count 184 x10^3/uL (140-400) Neutrophils (%) (Auto) 67 % (31-73) Lymphocytes (%) (Auto) 20 % (24-48) L Monocytes (%) (Auto) 13 % (0-9) H Eosinophils (%) (Auto) 0 % (0-3) Basophils (%) (Auto) 1 % (0-3) Neutrophils # (Auto) 2.5 x10^3/uL (1.8-7.7) Lymphocytes # (Auto) 0.7 x10^3/uL (1.0-4.8) L Monocytes # (Auto) 0.5 x10^3/uL (0.0-1.1) Eosinophils # (Auto) 0.0 x10^3/uL (0.0-0.7) Basophils # (Auto) 0.0 x10^3/uL (0.0-0.2) Platelet Estimate Pending Sodium Level 140 mmol/L (136-145) Potassium Level 3.0 mmol/L (3.5-5.1) L Chloride Level 104 mmol/L (98-107) Carbon Dioxide Level 24 mmol/L (21-32) Anion Gap 12 (6-14) Blood Urea Nitrogen 5 mg/dL (7-20) L Creatinine 0.7 mg/dL (0.6-1.0) Estimated GFR (Cockcroft-Gault) 106.7 BUN/Creatinine Ratio 7 (6-20) Glucose Level 136 mg/dL (70-99) H Calcium Level 8.7 mg/dL (8.5-10.1) Total Bilirubin 0.3 mg/dL (0.2-1.0) Aspartate Amino Transferase (AST) 24 U/L (15-37) Alanine Aminotransferase (ALT) 35 U/L (14-59) Alkaline Phosphatase 66 U/L (46-116) Total Protein 7.5 g/dL (6.4-8.2) Albumin 3.7 g/dL (3.4-5.0) Albumin/Globulin Ratio 1.0 (1.0-1.7) Urine Collection Type Unknown Urine Color Yellow Urine Clarity Clear Urine pH 5.5 Urine Specific [place] 1.015 Urine Protein 100 mg/dL (NEG-TRACE) Urine Glucose (UA) Negative mg/dL (NEG) Urine Ketones (Stick) Negative mg/dL (NEG) Urine Blood Large (NEG) Urine Nitrite Negative (NEG) Urine Bilirubin Negative (NEG) Urine Urobilinogen Dipstick 0.2 mg/dL (0.2 mg/dL) Urine Leukocyte Esterase Negative (NEG) Urine RBC 11-20 /HPF (0-2) Urine WBC 5-10 /HPF (0-4) Urine Squamous Epithelial Cells Many /LPF Urine Bacteria Few /HPF (0-FEW) Urine Mucus Mod /LPF Laboratory Tests 07/10/19 04:10 Laboratory Tests 07/10/19 04:10 EKG EKG [] Radiology/Procedures Radiology/Procedures [facility] [address] [place] [address] IMAGING REPORT Signed PATIENT: UMAIR CRUZ ACCOUNT: [id number] : 1970 LOCATION: ER AGE: 49 SEX: F EXAM STATUS: REG ER ORD. PHYSICIAN: NOMI MEDINA MD REASON: abdominal pain PROCEDURE: KUB KUB, CHEST AP ONLY Clinical History: Chest pain Technique: AP view of the chest was obtained at 07/10/2019 3:34 AM. Comparison: April 15, 2019. Findings: The cardiomediastinal silhouette is normal. The pulmonary vasculature is normal. Linear opacities lung bases are likely discoid atelectasis. Impression: No evidence of an acute cardiopulmonary process. End impression One view lower abdomen pelvis KUB 3:24 AM: Supine AP view lower and pelvis There is air within loops of large and small bowel. Densities in the pelvis could be calcified fibroids. There is no obvious free air on this supine view. IMPRESSION: Abnormal bowel gas pattern could represent a partial small bowel obstruction. Electronically signed by: Jaida Hardin III, MD (07/10/2019 4:19 AM) [id number] DICTATED and SIGNED BY: JAIDA HARDIN III, MD DATE: 07/10/19 0419 [] Course & Med Decision Making Course & Med Decision Making Pertinent Labs and Imaging studies reviewed. (See chart for details) [] 49-year-old female presents to the emergency department with complaints of multiple symptoms. Symptoms have been ongoing 1 week. Patient has history of hypertension. She describes chest pain, cough, congestion, nausea, vomiting, diarrhea, abdominal pain. She states she has been taking antibiotics from previous visits to the hospital however has had no relief. Nothing makes her symptoms worse, nothing makes her symptoms better. Her abdominal pain is generalized, comes and goes. Cough is productive with phlegm production. Laboratory values reviewed potassium 3.0, urinalysis without evidence of urinary tract infection White blood cell count 3.8 Chest x-ray without evidence of acute consolidation, KUB concerning for partial small bowel obstruction however CT does not reveal obstruction Patient with IVF and potassium replacement in ER Discussed with patient, will plan for dc home and follow up as outpatient Given symptoms ongoing x 1 week will provide po abx therapy as well as antinausea medications Return precautions discussed with patient Priscilla Disclaimer Priscilla Disclaimer This electronic medical record was generated, in whole or in part, using a voice recognition dictation system. Departure Departure Impression: Primary Impression: Bronchitis Additional Impressions: Hypokalemia Nausea Disposition: HOME, SELF-CARE Condition: IMPROVED Referrals: NO PCP (PCP) Patient Instructions: Bronchitis, [id number], Hypokalemia-Brief Additional Instructions: Recommend follow up with PCP 3 - 5 days Return to the ER with worsening symptoms, intractable pain, fever, altered mental status Tylenol/Motrin as needed for pain Take antibiotics as directed Inhaler provided upon discharge, take as directed Tessalon pearls as directed Chest xray without acute consolidation CT of abdomen and pelvis negative for acute intra-abdominal process Scripts Doxycycline Hyclate (DOXYCYCLINE HYCLATE) 100 Mg Capsule 1 CAP PO BID, #14 CAP Prov: NOMI MEDINA MD 07/10/19 Ondansetron Hcl (ZOFRAN) 4 Mg Tablet 1 TAB PO PRN Q6-8HRS for nausea, #12 TAB Prov: NOMI MEDINA MD 07/10/19 Benzonatate (TESSALON PERLE) 100 Mg Capsule 1 CAP PO TID for cough, #21 CAP Prov: NOMI MEDINA MD 07/10/19 Problem Qualifiers NOMI MEDINA MD Jul 10, 2019 03:40
[2019-07-10 04:16] LABS: BASO % 1 % (0-3); EOS % 0 % (0-3); HEMATOCRIT 37.9 % (36.0-47.0); HEMOGLOBIN 12.7 g/dL (12.0-15.5); LYMPH # 0.7 x10^3/uL (1.0-4.8); LYMPH % 20 % (24-48); MEAN CORPUSCULAR HEMOGLOBIN 29 pg (25-35); MEAN CORPUSCULAR HGB CONC 34 g/dL (31-37); MEAN CORPUSCULAR VOLUME 86 fL (79-100); MONO # 0.5 x10^3/uL (0.0-1.1); MONO % 13 % (0-9); NEUT # 2.5 x10^3/uL (1.8-7.7); NEUT % 67 % (31-73); PLATELET COUNT 184 x10^3/uL (140-400); RED BLOOD COUNT 4.42 x10^6/uL (3.50-5.40); RED CELL DISTRIBUTION WIDTH 14.5 % (11.5-14.5); WHITE BLOOD COUNT 3.8 x10^3/uL (4.0-11.0)
[2019-07-10 04:19] LABS: BILIRUBIN,URINE NEGATIVE (NEG); CLARITY,URINE CLEAR; COLOR,URINE YELLOW; NITRITE,URINE NEGATIVE (NEG); PH,URINE 5.5; PROTEIN,URINE 100 mg/dL (NEG-TRACE); UROBILINOGEN,URINE 0.2 mg/dL (0.2 mg/dL)
--- NOTE | 2019-07-10 04:22 | RAD ---
KUB, CHEST AP ONLY Clinical History: Chest pain Technique: AP view of the chest was obtained at 07/10/2019 3:34 AM. Comparison: April 15, 2019. Findings: The cardiomediastinal silhouette is normal. The pulmonary vasculature is normal. Linear opacities lung bases are likely discoid atelectasis. Impression: No evidence of an acute cardiopulmonary process. End impression One view lower abdomen pelvis KUB 3:24 AM: Supine AP view lower and pelvis There is air within loops of large and small bowel. Densities in the pelvis could be calcified fibroids. There is no obvious free air on this supine view. IMPRESSION: Abnormal bowel gas pattern could represent a partial small bowel obstruction. Electronically signed by: Alvin Luna III, MD (07/10/2019 4:19 AM) [id number]
[2019-07-10 04:24] LABS: CALCIUM 8.7 mg/dL (8.5-10.1); CREATININE 0.7 mg/dL (0.6-1.0); GFR 106.7
[2019-07-10 04:26] LABS: SQUAMOUS EPITHELIAL CELL,UR MANY /LPF
[2019-07-10 04:27] LABS: BACTERIA,URINE FEW /HPF (0-FEW)
[2019-07-10 04:30] LABS: ALBUMIN 3.7 g/dL (3.4-5.0); TOTAL BILIRUBIN 0.3 mg/dL (0.2-1.0); TOTAL PROTEIN 7.5 g/dL (6.4-8.2)
[2019-07-10] MEDS ORDERED: IOHEXOL 300 MG/ML 100ML VIAL. IV ONE (05:00)
[2019-07-10] MEDS ORDERED: CONTRAST GIVEN. MC PRN (05:00)
[2019-07-10] MEDS ORDERED: POTASSIUM CHLORIDE 20MEQ 100 ML IV ONE (05:00)
--- NOTE | 2019-07-10 05:21 | RAD ---
CT SCAN OF THE ABDOMEN AND PELVIS WITH IV CONTRAST. History: Abnormal KUB possible small bowel obstruction Comparison: November 27, 2018. Procedure: Contiguous axial images of the abdomen and pelvis were performed after the administration of 75 cc of Isovue 370 IV contrast. Oral contrast: No. Findings: The urinary bladder is not fully distended there is apparent moderate wall thickening. Liver: Unremarkable Spleen: Unremarkable Pancreas: Unremarkable Adrenal Glands: Unremarkable Kidneys: Unremarkable There is no mass or lymphadenopathy. There is no free air. There is no free fluid. The appendix is not well seen. The uterus appears normal. There are calcifications within the ovaries bilaterally. Impression: 1. Bilateral ovarian calcifications suggests an ovarian ethmoids. This was seen previously. 2. Apparent wall thickening of the bladder is likely hypertrophy. 3. Normal bowel gas pattern. End impression PQRS Compliance Statement: One or more of the following individualized dose reduction techniques were utilized for this examination: 1. Automated exposure control 2. Adjustment of the mA and/or kV according to patient size 3. Use of iterative reconstruction technique Electronically signed by: Alvin Luna III, MD (07/10/2019 5:18 AM) [id number]
[2019-07-10] MEDS ORDERED: BENZ100C PO (05:58)
[2019-07-10] MEDS ORDERED: ONDA4TAB7 PO (05:58)
[2019-07-10] MEDS ORDERED: DOXY100C2 PO (05:58)
[2019-07-10] MEDS ORDERED: MORPHINE SULFATE 4 MG/ML VIAL. IV ONE (06:00)
[2019-07-10] MEDS ORDERED: ONDANSETRON PF 4 MG/2 ML VIAL. IVP ONE (06:00)
[2019-07-10 07:15] VITALS: BP 163/73
[2019-07-10 07:51] LABS: % BANDS 6 % (0-9); % LYMPHS 24 % (24-48); % MONOS 11 % (0-10); % SEGS 59 % (35-66)
[2019-07-10 07:53] LABS: PLT ESTIMATE ADEQUATE (ADEQUATE)
[2019-07-10] MEDS ORDERED: VENTOLIN HFA18 GM INH (08:06)
== END 2019-07-10 07:59 | disposition home or self-care (01) ==
LOC: ER 03:19
DX: J40 Bronchitis, not specified as acute or chronic (principal); E87.6 Hypokalemia; R11.2 Nausea with vomiting, unspecified; R07.89 Other chest pain; R19.7 Diarrhea, unspecified; I10 Essential (primary) hypertension; F20.9 Schizophrenia, unspecified; F17.200 Nicotine dependence, unspecified, uncomplicated
CPT/HCPCS: 36415; 71045; 74018; 74177; 80053; 81001; 85007; 85025; 87086; 96365; 96366; 96375; 99285; J2270; J2405; J3480; Q9967

== ENCOUNTER 2020-08-01 08:37 | Emergency (ER) | payer MEDICAID ==
[~2020-08-01] VITALS: Ht 180.3 cm; Wt 104.5 kg
[~2020-08-01 08:37] MED LIST changes: +ALBU2.5V5 NEB; +BENZ100C PO; +CITA40TA5 PO; -CLIN150C14 PO; +CLIN150C15 PO; +DOCU-153 PO; +DOXY100C2 PO; +HYDR-2759 PO; +LISI10TA16 PO; -LISI10TA2 PO; +LISI1TAB37 PO; +ONDA-84 SL; +ONDA4TAB7 PO; +OXYC1TAB15 PO; +QUET300T67 PO; +QUET400T PO; +SENN-87 PO; +VENTOLIN HFA18 GM INH
[2020-08-01 09:21] LABS: BASO # 0.1 x10^3/uL (0.0-0.2); BASO % 0 % (0-3); EOS % 0 % (0-3); HEMATOCRIT 37.8 % (36.0-47.0); HEMOGLOBIN 12.5 g/dL (12.0-15.5); LYMPH # 0.8 x10^3/uL (1.0-4.8); LYMPH % 5 % (24-48); MEAN CORPUSCULAR HEMOGLOBIN 30 pg (25-35); MEAN CORPUSCULAR HGB CONC 33 g/dL (31-37); MEAN CORPUSCULAR VOLUME 89 fL (79-100); MONO # 0.8 x10^3/uL (0.0-1.1); MONO % 5 % (0-9); NEUT # 14.8 x10^3/uL (1.8-7.7); NEUT % 90 % (31-73); PLATELET COUNT 228 x10^3/uL (140-400); RED BLOOD COUNT 4.23 x10^6/uL (3.50-5.40); RED CELL DISTRIBUTION WIDTH 13.3 % (11.5-14.5); WHITE BLOOD COUNT 16.4 x10^3/uL (4.0-11.0)
--- NOTE | 2020-08-01 09:21 | RAD ---
EXAM: Chest, single view. HISTORY: Cough. Covid 19. COMPARISON: 07/26/2019 FINDINGS: A frontal view of the chest is obtained. There is diffuse mixed interstitial and alveolar i nfiltrate. There is no consolidation, pleural effusion or pneumothorax. The heart is normal in size. There are few tiny nodular opacities which are likely due to granulomas. IMPRESSION: Diffuse interstitial infiltrate. Electronically signed by: Bisi Amaral MD (08/01/2020 9:18 AM) [id number]
[2020-08-01] MEDS ORDERED: KETOROLAC 30 MG/ML VIAL. IVP ONE (09:30)
[2020-08-01 09:32] LABS: CALCIUM 8.5 mg/dL (8.5-10.1); GFR 70.5; POTASSIUM 3.3 mmol/L (3.5-5.1)
[2020-08-01 09:39] LABS: ALBUMIN 3.4 g/dL (3.4-5.0); ALBUMIN/GLOBULIN RATIO 0.9 (1.0-1.7); C-REACTIVE PROTEIN 76.6 mg/L (0-3.3); TOTAL BILIRUBIN 0.7 mg/dL (0.2-1.0); TOTAL PROTEIN 7.2 g/dL (6.4-8.2)
[2020-08-01] MEDS ORDERED: DEXAMETHASONE SOD PHOS 4 MG/ML VIAL IVP ONE (09:45)
--- NOTE | 2020-08-01 09:51 | EKG ---
[facility] [address] [place] [address] Test Date: 2020-08-01 Test Time: 08:43:47 Pat Name: UMAIR CRUZ Department: Room: Gender: F [employer]: : 1970 Requested By: CHRISTINE CARTER Order Number: [id number] Reading MD: Measurements Intervals [place] Rate: 91 P: 62 WI: 150 QRS: -66 QRSD: 134 T: 39 QT: 390 QTc: 481 Interpretive Statements SINUS RHYTHM ABNORMAL LEFT AXIS DEVIATION LEFT ANTERIOR FASCICULAR BLOCK RIGHT BUNDLE BRANCH BLOCK BIFASCICULAR BLOCK RVH WITH REPOLARIZATION ABNORMALITY ABNORMAL ECG RI6.02 No previous ECG available for comparison
[2020-08-01 10:08] LABS: INFLUENZA A PATIENT NEGATIVE (NEGATIVE); INFLUENZA B PATIENT NEGATIVE (NEGATIVE)
--- NOTE | 2020-08-01 10:27 | ED.ADGEN ---
Past Medical History Past Medical History: Bipolar, Depression, Hypertension, Schizophrenia Additional Past Medical Histor: schizophrenia w/ hallucinations, visual and auditory, PARANOIA Past Surgical History: Other Additional Past Surgical Histo: Rectal Abscess I&D x2 Smoking Status: Current Every Day Smoker Alcohol Use: Heavy Drug Use: Marijuana General Adult EDM: Chief Complaint: CHEST PAIN HPI: HPI: Patient is a 50-year-old female past medical history of paranoid schizophrenia who presents to the emergency room complaining of chest pain when she coughs and breathes that is sharp and stabbing through to her back. She has been having headache, shortness of breath, abdominal cramping, diarrhea. This all started over the last couple of days. She has not tried to take anything for symptoms. She denies any recreational cocaine abuse. She states her headache is the worst of the pain. She states the pain in her chest goes away if she lays on her side. Review of Systems: Review of Systems: Complete ROS is negative unless otherwise documented in HPI Current Medications: Current Medications Medications (Trade) Dose Ordered Sig/Leann Start Time Stop Time Status Last Admin Dose Admin Ceftriaxone Sodium (Rocephin) 1 gm 1X ONCE 08/01/20 11:15 08/01/20 11:16 DC Dexamethasone Sodium Phosphate (Decadron) 10 mg 1X ONCE 08/01/20 09:45 08/01/20 09:46 DC 08/01/20 09:37 10 MG Ketorolac Tromethamine (Toradol 30mg Vial) 30 mg 1X ONCE 08/01/20 09:30 08/01/20 09:31 DC 08/01/20 09:37 30 MG Sumatriptan Succinate (Imitrex) 6 mg 1X ONCE 08/01/20 11:15 08/01/20 11:16 DC Allergies: Allergies: Allergies Coded Allergies Type Severity Reaction Last Updated Verified ciprofloxacin Allergy Intermediate Hives 08/01/20 Yes Physical Exam: PE: General: Awake, alert, NAD. Well Nourished, well hydrated. Cooperative HEENT: Atraumatic, EOMI, PERRL, airway patent, moist oral mucosa Neck: Supple, trachea midline Respiratory: Decreased breath sounds and all 4 lobes, diffuse minimal crackles CV: RRR, no murmur, cap refill <2 GI: Soft, nondistended, nontender, no masses MSK: No obvious deformities Skin: Warm, dry, intact Neuro: A&O x3, speech NL, sensory and motor grossly intact, no focal deficits Psych: Normal affect, normal mood, not suicidal or homicidal Current Patient Data: Labs: Laboratory Tests Test 08/01/20 09:06 08/01/20 09:43 White Blood Count 16.4 x10^3/uL (4.0-11.0) H Red Blood Count 4.23 x10^6/uL (3.50-5.40) Hemoglobin 12.5 g/dL (12.0-15.5) Hematocrit 37.8 % (36.0-47.0) Mean Corpuscular Volume 89 fL (79-100) Mean Corpuscular Hemoglobin 30 pg (25-35) Mean Corpuscular Hemoglobin Concent 33 g/dL (31-37) Red Cell Distribution Width 13.3 % (11.5-14.5) Platelet Count 228 x10^3/uL (140-400) Neutrophils (%) (Auto) 90 % (31-73) H Lymphocytes (%) (Auto) 5 % (24-48) L Monocytes (%) (Auto) 5 % (0-9) Eosinophils (%) (Auto) 0 % (0-3) Basophils (%) (Auto) 0 % (0-3) Neutrophils # (Auto) 14.8 x10^3/uL (1.8-7.7) H Lymphocytes # (Auto) 0.8 x10^3/uL (1.0-4.8) L Monocytes # (Auto) 0.8 x10^3/uL (0.0-1.1) Eosinophils # (Auto) 0.0 x10^3/uL (0.0-0.7) Basophils # (Auto) 0.1 x10^3/uL (0.0-0.2) Segmented Neutrophils % 78 % (35-66) H Band Neutrophils % 11 % (0-9) H Lymphocytes % 7 % (24-48) L Monocytes % 4 % (0-10) Platelet Estimate Adequate (ADEQUATE) D-Dimer (Abbie) < 0.27 ug/mlFEU Sodium Level 140 mmol/L (136-145) Potassium Level 3.3 mmol/L (3.5-5.1) L Chloride Level 106 mmol/L (98-107) Carbon Dioxide Level 21 mmol/L (21-32) Anion Gap 13 (6-14) Blood Urea Nitrogen 7 mg/dL (7-20) Creatinine 1.0 mg/dL (0.6-1.0) Estimated GFR (Cockcroft-Gault) 70.5 BUN/Creatinine Ratio 7 (6-20) Glucose Level 176 mg/dL (70-99) H Calcium Level 8.5 mg/dL (8.5-10.1) Total Bilirubin 0.7 mg/dL (0.2-1.0) Aspartate Amino Transferase (AST) 19 U/L (15-37) Alanine Aminotransferase (ALT) 28 U/L (14-59) Alkaline Phosphatase 67 U/L (46-116) Lactate Dehydrogenase 167 U/L (81-234) Creatine Kinase 241 U/L (26-192) H Troponin I Quantitative < 0.017 ng/mL (0.000-0.055) C-Reactive Protein, Quantitative 76.6 mg/L (0-3.3) H VV-Zyd-J-Type Natriuretic Peptide 180 pg/mL (0-124) H Total Protein 7.2 g/dL (6.4-8.2) Albumin 3.4 g/dL (3.4-5.0) Albumin/Globulin Ratio 0.9 (1.0-1.7) L Influenza Type A Antigen Negative (NEGATIVE) Influenza Type B Antigen Negative (NEGATIVE) Laboratory Tests 08/01/20 09:06 Laboratory Tests 08/01/20 09:06 Vital Signs: Vital Signs Date Time Temp Pulse Resp B/P (MAP) Pulse Ox O2 Delivery O2 Flow Rate FiO2 08/01/20 08:40 98.0 91 24 133/71 (91) 98 Room Air 98.0 EKG: EKG: [] Heart Score: Risk Factors: Risk Factors: DM, Current or recent (<one month) smoker, HTN, HLP, family history of CAD, obesity. Risk Scores: Score 0 - 3: 2.5% MACE over next 6 weeks - Discharge Home Score 4 - 6: 20.3% MACE over next 6 weeks - Admit for Clinical Observation Score 7 - 10: 72.7% MACE over next 6 weeks - Early Invasive Strategies Radiology/Procedures: Radiology/Procedures: [] Course & Med Decision Making: Course & Med Decision Making Pertinent Labs and Imaging studies reviewed. (See chart for details) Patient is a 50-year-old female who presents to the emergency room with cough, pleuritic chest pain, diarrhea, abdominal cramping. At this time there is concern for the novel coronavirus 19. Risk stratifying work-up was ordered including chest x-ray, d-dimer, CPK, CRP, LDH, troponin, ferritin, CBC, CMP. D ue to concern of COVID-19 I have discussed the importance of quarantining with the patient. I have discussed with them that they should avoid grocery stores, gas stations, pharmacies, work, friends/family's homes. I discussed with him that it is important that they do not expose themselves to anyone else for the next 14 days. Chest x-ray does show infiltrates at this time and patient will be treated with empiric antibiotics. I have discussed with the patient the course of the illness and we have discussed strict return precautions. At this time patient does not need admission as they are stable, however it is possible that they may get worse over the next few days and we have discussed the importance of coming back if they develop severe shortness of breath or any other symptoms that they are concerned about. Patient's test results and vitals while in the ED were fully reviewed and discussed with the patient. Patient is stable and at this time does not need admission to the hospital. We have discussed strict return precautions and the importance of following up with their Primary Care Physician. Patient stated understanding and was given an opportunity to ask any questions. Priscilla Disclaimer: Priscilla Disclaimer: This electronic medical record was generated, in whole or in part, using a voice recognition dictation system. Departure Departure Impression: Primary Impression: Suspected 2019 novel coronavirus infection Additional Impression: Chest pain Disposition: 01 DC HOME SELF CARE/HOMELESS Condition: IMPROVED Referrals: UNKNOWN PCP NAME (PCP) Patient Instructions: General Headache Without Cause Additional Instructions: Thank you for visiting [facility]. We appreciate you trusting us with your care. If any additional problems come up please don't hesitate to return to visit us. Follow up with your primary care provider so they can plan additional care if needed and know about the problem that you had today. If symptoms worsen come back to the Emergency Department. Any concerning symptoms that start such as chest pain, shortness of air, weakness or numbness on one side of the body, running high fevers or any other concerning symptoms return to the ER. You have a viral syndrome which may include symptoms like muscle aches, fevers, chills, runny nose, cough, sneezing, sore throat, nausea, vomiting, or diarrhea. One of the potential viruses that you may have is SARS-CoV-2, the virus that causes COVID-19, also known as the Coronavirus. You are just as likely to have a different viral infection such as the common cold, flu, etc. Most patients with the Coronavirus have mild symptoms and recover on their own. Resting, staying hydrated, and sleep based on known cases can be helpful. As of todays visit, you are well enough to go home and treat your symptoms with oral fluids and over the counter medications. Coronavirus testing is not performed on most people with mild symptoms who are being discharged from the emergency department. If Coronavirus testing was performed today the results will not be available for possibly up to 3-4 days. If your result is positive you will be contacted. Please follow the following precautions at home: 1. Stay home except to get medical care. 2. As advised by the CDC, we recommend that you stay in your home and minimize contact with other people. We do not want you to spread the infection. 3. Those who are older or have significant medical issues may have more severe symptoms from this infection. We recommend self-isolation FOR AT LEAST 7 DAYS after your 1st day of symptoms. AFTER you feel better please wait AT LEAST ANOTHER WEEK before returning to regular activities and being around other people. 4. IF you become sicker and have difficulty breathing, chest pain, are unable to eat/drink, severe vomiting, diarrhea, or weakness you may need to return to the Emergency Department. 5. You should restrict activities outside of your home, except for getting medical care. DO NOT go to work, school, or public areas. Avoid using public transportation, ride sharing, or taxis. 6. Separate yourself from other people in your home. You should use a separate bathroom if possible. 7. Avoid sharing personal household items such as dishes, cups, eating utensils, towels, etc. 8. Clean all high touch surfaces every day (door knobs, counter tops, etc). Use a household cleaning spray or wipe per label instructions. 9. Clean your hands often. Wash your hands with soap and water for at least 20 seconds. 10. Cover your mouth and nose when you cough or sneeze. 11. Throw used tissues in the trash and immediately wash your hands. For additional resources please visit the CDC website or the [facility] ([phone]), you may also call 211 for further information. Scripts Acetaminophen With Codeine (ACETAMINOPHEN-COD #3 TABLET) 1 Each Tablet 1 TAB PO PRN Q6HRS PRN for PAIN for 3 Days, #10 TAB Prov: CHRISTINE CARTER MD 08/01/20 Prednisone (PREDNISONE) 50 Mg Tablet 1 TAB PO DAILY, #5 TAB Prov: CHRISTINE CARTER MD 08/01/20 Azithromycin (ZITHROMAX) 250 Mg Tablet 1 PKG PO UD, #6 TAB Prov: CHRISTINE CARTER MD 08/01/20 Problem Qualifiers CHRISTINE CARTER MD Aug 01, 2020 10:27
[2020-08-01] MEDS ORDERED: cefTRIAXone IV Push 1 GM VIAL. IVP ONE (11:15)
[2020-08-01] MEDS ORDERED: SUMAtriptan SUCC 6 MG/0.5 ML VIAL. SQ ONE (11:15)
[2020-08-01 11:22] LABS: % BANDS 11 % (0-9); % LYMPHS 7 % (24-48); % MONOS 4 % (0-10); % SEGS 78 % (35-66); PLT ESTIMATE ADEQUATE (ADEQUATE)
[2020-08-01] MEDS ORDERED: ACET1TAB33 PO (11:32)
[2020-08-01] MEDS ORDERED: PRED50TA PO (11:32)
[2020-08-01] MEDS ORDERED: AZIT250T PO (11:32)
[2020-08-01 12:02] VITALS: BP 131/64
--- NOTE | 2020-08-02 15:06 | NUR ---
IP: Attempted to contact pt concerning COVID results. No answer. left a voicemail to return the call.
== END 2020-08-01 12:18 | disposition home or self-care (01) ==
LOC: ER 08:37
DX: R07.89 Other chest pain (principal); Z20.822 Contact with and (suspected) exposure to COVID-19; R05 Cough; R06.02 Shortness of breath; F32.9 Major depressive disorder, single episode, unspecified; I10 Essential (primary) hypertension; F20.9 Schizophrenia, unspecified; F17.200 Nicotine dependence, unspecified, uncomplicated; F12.90 Cannabis use, unspecified, uncomplicated; F10.10 Alcohol abuse, uncomplicated; Z98.890 Other specified postprocedural states; Z88.1 Allergy status to other antibiotic agents
CPT/HCPCS: 36415; 71045; 80053; 82550; 83615; 83880; 84484; 85007; 85025; 85379; 86140; 87804; 93005; 96372; 96374; 96375; 99285; C9803; J0696; J1100; J1885; J3030; U0003